=== PATIENT | female | born 1990 | race Caucasian/White ===

== ENCOUNTER → 2019-01-07 12:13 | Outpatient (CLI) | payer OTHER, SELFPAY ==
--- NOTE | 2019-01-06 | FLU_PTH ---
PATIENT: PAYAL DIAZ LOC: [facility] U#:[id number] AGE/SX: 35/F ROOM: RE01/07/[address]: Dr. Lissette Moncada MD : 1990 BED: DIS: SPEC #: [id number] RECD: 01/07/19 12:13 STATUS: RADHA VANDA #: [id number] GEN: 01/06/19 00:[address]: Lissette Moncada DEPT: CYTOLOGY RECD BY: Moose Alvarado Tissues: A - Thyroid gland, NOS B - Thyroid gland, NOS Procedures: Special Stain Group II Surgery Specimen Level IV Cytospin Fluid Cytology Other HEADER OPERATION: Left thyroid aspiration PRE-OP DIAGNOSIS: Thyroid nodule TISSUE SUBMITTED: A - Left thyroid aspirate fluid for cytology, B - Left thyroid FNA slides x6 DIAGNOSIS CYTOLOGY A. Left thyroid aspirate fluid for cytology (cytospin and cell block): Acellular specimen. B. Left thyroid nodule, FNA (smears): Nondiagnostic specimen due to absence of follicular cells. SJ:rg 01/10/19 COMMENT Correlation with clinical, radiologic findings and appropriate follow up are necessary. Case has been reviewed in consultation with Dr. Fernandez who concurs with the above diagnosis. IDC:AM CYTOLOGY STUDY Slides are reviewed. CYTOLOGY GROSS A - Received is 25 ml of clear colorless fluid labeled with the patient's name and and designated per the requisition as left thyroid. Submitted for cytology preparation including cell block. B - Received are six smears labeled with the patient's name and designated per the requisition as left thyroid. Submitted for staining. / 01/07/19 TC:5 CPT: 44480, 30960, 50046
== END ==
PROVIDERS: Referring Provider Surgery; Visit Provider Surgery
DX: E04.1 Nontoxic single thyroid nodule (principal)
CPT/HCPCS: 88108; 88161; 88305; 88313

== ENCOUNTER → 2020-03-13 | Outpatient (CLI) | payer OTHER, SELFPAY ==
--- NOTE | 2020-03-13 | FLU_PTH ---
PATIENT: PAYAL DIAZ LOC: [facility] U#:[id number] AGE/SX: 29/F ROOM: RE03/13/[address]: Dr. Zachary Andujar MD : 1990 BED: DIS: 03/13/2020 SPEC #: [id number] RECD: 03/14/20 11:59 STATUS: RADHA REQ #: [id number] GEN: 03/13/20 00:[address]: Lissette Moncada DEPT: CYTOLOGY RECD BY: Raciel Marshall ENTERED: 03/14/20 12:00 SP TYPE: Fluid OTHR DR: Dr. Zachary Andujar MD Tissues: A - Thyroid gland, NOS B - Thyroid gland, NOS C - Thyroid gland, NOS D - Thyroid gland, NOS Procedures: Special Stain Group II Surgery Specimen Level IV Cytospin Fluid Comments: @ Ordering doctor for SSII edited from to @ by KELLEN at 03/15/20 1029 @ Ordering doctor for SUIV edited from to DR.LWANG Askew by KELLEN at 03/15/20 1029 @ Ordering doctor for CYSPIN edited from to @ by KELLEN at 03/15/20 1029 @ Submitting doctor edited from to @ by RGOOD at 03/15/20 1029 HEADER OPERATION: Ultrasound-guided fine needle aspiration right and left thyroid PRE-OP DIAGNOSIS: Thyroid nodules TISSUE SUBMITTED: A - Right thyroid nodule fluid for cytology, B - Right thyroid nodule slides x4, C - Left thyroid nodule fluid for cytology, D - Left thyroid nodule slides x4 DIAGNOSIS CYTOLOGY A. Right thyroid nodule fluid for cytology, ultrasound-guided FNA (cytospin and cell block): A few benign follicular cells noted. B. Right thyroid nodule, ultrasound-guided FNA (smears): Consistent with benign follicular nodule. Adequate for evaluation. See cytology study. C. Left thyroid nodule fluid for cytology, ultrasound-guided FNA (cytospin and cell block): Acellular specimen. D. Left thyroid nodule, ultrasound-guided FNA (smears): Consistent with benign colloid nodule. Adequate for evaluation. SJ:shanon 03/15/20 CYTOLOGY STUDY Slides are reviewed. B. The specimen is paucicellular, however, meets the minimal criteria for adequacy. The specimen consists of benign follicular cells and diluted colloid. Correlation with clinical, radiologic findings and appropriate follow up are necessary. CYTOLOGY GROSS A - Received is 30 ml of brown cloudy fluid labeled with the patient's name and and designated per the requisition as right thyroid. Submitted for cytology preparation including cell block. B - Received are four smears labeled with the patient's name and designated per the requisition as right thyroid. Submitted for staining. C - Received is 30 ml of brown cloudy fluid labeled with the patient's name and and designated per the requisition as left thyroid. Submitted for cytology preparation including cell block. D - Received are four smears labeled with the patient's name and designated per the requisition as left thyroid. Submitted for staining. / shanon 03/14/20 TC:5 CPT: 71301 x2, 27206 x2, 81856 x2
== END | disposition home or self-care (01) ==
LOC: LABSPEC 03-14 11:18
PROVIDERS: PCP Family Medicine; Referring Provider Family Medicine; Visit Provider Family Medicine
DX: E04.2 Nontoxic multinodular goiter (principal)
CPT/HCPCS: 88108; 88305; 88313